=== PATIENT | female | born 1935 | race Caucasian/White ===

== ENCOUNTER 2017-11-27 19:33 | Emergency (ER) | payer MEDICARE, OTHER ==
[~2017-11-27] VITALS: Ht 165.1 cm; Wt 65.0 kg
[2017-11-27 19:44] VITALS: BP 155/73
[2017-11-27] MEDS ORDERED: METF500T5 PO (19:48)
[2017-11-27] MEDS ORDERED: CIME200T6 PO (19:51)
[2017-11-27] MEDS ORDERED: FAMO-79 PO (19:51)
[2017-11-27] MEDS ORDERED: PERCOCET (19:51)
[2017-11-27] MEDS ORDERED: LISI-167 PO (19:51)
[2017-11-27] MEDS ORDERED: METH-356 PO (19:51)
[2017-11-27] MEDS ORDERED: LOVA20TA2 PO (19:51)
[2017-11-27] MEDS ORDERED: VIT B12 (19:51)
[2017-11-27] MEDS ORDERED: OXYcodone/APAP 10/325MG TABLET PO ONE (20:00)
[2017-11-27] MEDS ORDERED: OXYcodone/APAP 10/325MG TABLET ONE (20:02)
== END 2017-11-27 20:40 | disposition home or self-care (01) ==
LOC: ED 20:34
DX: G89.29 Other chronic pain (principal); M25.551 Pain in right hip; I10 Essential (primary) hypertension; F11.90 Opioid use, unspecified, uncomplicated
CPT/HCPCS: 99283